=== PATIENT | male | born 1945 | race Caucasian/White ===

== ENCOUNTER 2017-08-10 05:55 | Day surgery (SDC) | payer OTHER, MEDICAID, MEDICARE ==
[2017-08-10] MEDS ORDERED: PROPOFOL 100 ML (07:00)
[2017-08-10] MEDS ORDERED: MIDAZOLAM 1 MG/ML 2 ML INJ (07:00)
[2017-08-10] MEDS ORDERED: FENTAnyl 50 MCG/ML VIAL (07:00)
[2017-08-10] MEDS ORDERED: LIDOCAINE 100 MG SYRINGE (07:00)
[2017-08-10] MEDS: BUPIVACAINE 0.5% (SDV) 30 ML INJ (07:50)
[2017-08-10] MEDS: BACITRACIN/POLYMYXIN 28.35 GM OINT TOP (07:50)
[2017-08-10] MEDS: POLYMYXIN/BACITRACIN 1L IRRIG IRR (07:51)
[2017-08-10] MEDS: DEXAMETHASONE 4 MG/ML 1 ML INJ (07:51)
[2017-08-10] MEDS ORDERED: LABETALOL HCL 20MG INJ IV (08:00)
[2017-08-10] MEDS ORDERED: FENTAnyl 50 MCG/ML VIAL IV ×2 (08:00)
[2017-08-10] MEDS ORDERED: HYDROmorphONE 1 MG/5 ML IV SYRINGE IV (08:00)
[2017-08-10] MEDS ORDERED: ONDANSETRON 4 MG INJ IV (08:00)
[2017-08-10] MEDS ORDERED: CEFAZOLIN 1 GM INJ (08:37)
[2017-08-10] MEDS ORDERED: PROPOFOL 20 ML (08:37)
[2017-08-10] MEDS ORDERED: LIDOCAINE 1% (MDV) 20 ML INJ (08:39)
[2017-08-10] MEDS ORDERED: GLYCOPYRROLATE 0.4 MG INJ (08:47)
[2017-08-10] MEDS: LIDOCAINE 1% (MPF) 30 ML INJ (09:00)
[2017-08-10] MEDS ORDERED: POLYMYXIN/BACITRACIN 1L IRRIG (09:30)
== END 2017-08-10 10:03 | disposition home or self-care (01) ==
LOC: SDS 05:55
DX: L97.516 Non-pressure chronic ulcer of other part of right foot with bone involvement without evidence of necrosis (principal); E11.9 Type 2 diabetes mellitus without complications; E78.5 Hyperlipidemia, unspecified; N40.0 Benign prostatic hyperplasia without lower urinary tract symptoms
CPT/HCPCS: 28173; 82962